=== PATIENT | female | born 1955 | race Two or more races ===

== ENCOUNTER 2017-01-08 17:28 | Emergency (ER) | payer SELFPAY ==
[~2017-01-08] VITALS: Ht 162.6 cm; Wt 68.0 kg
[2017-01-08 18:08] VITALS: BP 131/81
== END 2017-01-08 20:27 | disposition left against medical advice (07) ==
LOC: EDBD 17:28 → ER 17:57
DX: M79.603 Pain in arm, unspecified (principal); Z53.21 Procedure and treatment not carried out due to patient leaving prior to being seen by health care provider; V49.59XA Passenger injured in collision with other motor vehicles in traffic accident, initial encounter; Y93.89 Activity, other specified; Y99.8 Other external cause status; Y92.410 Unspecified street and highway as the place of occurrence of the external cause